=== PATIENT | female | born 1995 | race Caucasian/White ===

== ENCOUNTER 2017-05-07 13:16 | Emergency (ER) | payer BC ==
[2017-05-07 13:26] VITALS: BP 146/104; TEMP 98; O2SAT 99
--- NOTE | 2017-05-07 14:13 | RAD ---
EXAM DESCRIPTION: Forearm, left CLINICAL HISTORY: 21 years Female forearm caught in ski rope COMPARISON: None. TECHNIQUE: Two views of the left forearm. FINDINGS: No acute fractures or dislocations are identified. No osseous destructive lesions. IMPRESSION: No acute fracture is identified. Electronically signed by: Aroldo Gonzalez MD 05/07/2017 2:13 PM CDT
[2017-05-07] MEDS ORDERED: HYDROcodone 5MG/APAP 325MG 1 EA TAB PO ONE (14:26)
--- NOTE | 2017-05-07 14:28 | ED.PDOC ---
History of Present Illness - General Chief Complaint: Upper Extremity Injury Stated Complaint: L wrist injury Time Seen by Provider: 05/07/17 13:21 Source: patient Exam Limitations: no limitations - History of Present Illness Initial Comments: The patient is a 21-year-old female presenting to the emergency room approximatelyone hour after sustaining a left upper extremity injury while water skiing. the patient apparently got a ski rope wrapped around her left forearm for a period of about 20 seconds. This did give some significant swelling. It appears the main area of constriction occurred at the distal third of the forearm. She does appear to be neurovascularly preserved. Capillary refill is within normal limits. Radial pulse is symmetrical. She does have bruising on the volar aspect of her wrist. Aside from swelling there is no obvious bony deformity. Sensation is preserved. No other injuries. No near drowning. Timing/Duration: momentarily Severity: severe Improving Factors: immobilization Worsening Factors: movement Associated Symptoms: denies symptoms Allergies/Adverse Reactions: Allergies NO KNOWN ALLERGY Allergy (Verified 05/07/17 13:24) Home Medications: Ambulatory Orders Wefvtcownvlmr-Qpgv-Lcfqgfosyl [Fioricet] 1 ea PO Q8H PRN #21 tab 05/07/17 Escitalopram [Lexapro] 10 mg PO DAILY 05/07/17 Review of Systems - Review of Systems Constitutional: States: no symptoms reported EENTM: States: no symptoms reported Respiratory: States: no symptoms reported Cardiology: States: no symptoms reported Gastrointestinal/Abdominal: States: no symptoms reported Genitourinary: States: no symptoms reported Musculoskeletal: States: see HPI Skin: States: see HPI Neurological: States: no symptoms reported Endocrine: States: no symptoms reported All other Systems: No Change from Baseline Past Medical History (General) - Patient Medical History Hx Stroke: No Hx Congestive Heart Failure: No Hx Diabetes: No - Vaccination History Hx Influenza Vaccination: No Hx Pneumococcal Vaccination: No - Social History Hx Tobacco Use: No - Female History Patient is a Female of Child Bearing Age (10 -59 yrs old): Yes Patient : No Family Medical History - Family History Mother Family History: No Known Living Status: Still Living Physical Exam - Physical Exam General Appearance: Alert, No apparent distress Eye Exam: bilateral normal Ears, Nose, Throat: hearing grossly normal Neck: full range of motion Respiratory: no respiratory distress, no accessory muscle use Cardiovascular/Chest: normal peripheral pulses, other - regular rate Peripheral Pulses: radial,right: 2+, radial,left: 2+ Rectal Exam: deferred Extremity: normal range of motion, no pedal edema, no calf tenderness, normal capillary refill, other - swelling to the left distal forearm with associated bruising and petechia formation. Neurologic: career development consultant II-XII nml as tested, no motor/sensory deficits, alert, normal mood/affect, oriented x 3 Skin Exam: normal color - with the exception as stated above Comments: Vital Signs - 8 hr 05/07/17 13:24 Temperature 98.0 F Pulse Rate [ 91 H Right Radial] Respiratory 20 Rate Blood Pressure 146/104 [Right Arm] O2 Sat by Pulse 99 Oximetry Progress - Progress Progress: 05/07/17 14:32 the patient is a 21-year-old female presenting after a constriction injury to her left forearm distal third, brief in nature. X-ray shows no evidence of fracture or dislocation. She appears to be neurovascularly intact at this time with no clinical evidence of compartment syndrome. She does need to keep the arm slightly elevated. I would recommend against wrapping the arm for the next 2 days. She does need to move the fingers and move the hand to help reduce discomfort and swelling. Oral anti-inflammatory such as Aleve and ibuprofen may prove helpful for discomfort. She'll be written for Fioricet for as needed use as well. ER warnings were given for any worsening. She does understand that the bruising will extend distally and proximally over the next few days. She should follow-up with her primary care doctor in the next couple of days as well for reevaluation. Departure - Departure Clinical Impression: External constriction of left forearm Qualifiers: Encounter type: initial encounter Qualified Code(s): S50.842A - External constriction of left forearm, initial encounter Disposition: Discharge to Home or Self Care Condition: Fair Departure Forms: ED Discharge - Pt. Copy, Patient Portal Self Enrollment Instructions: DI for Arm Pain Diet: regular diet Activity: increase activity as tolerated Prescriptions: Lvosiaqzlyrhn-Gzly-Btozazasyn [Fioricet] 1 ea PO Q8H PRN #21 tab PRN Reason: Pain Home Medications: Ambulatory Orders Yxzvgqsxbexbt-Aymq-Bnkgnndtpo [Fioricet] 1 ea PO Q8H PRN #21 tab 05/07/17 Escitalopram [Lexapro] 10 mg PO DAILY 05/07/17 Additional Instructions: the patient is a 21-year-old female presenting after a constriction injury to her left forearm distal third, brief in nature. X-ray shows no evidence of fracture or dislocation. She appears to be neurovascularly intact at this time with no clinical evidence of compartment syndrome. She does need to keep the arm slightly elevated. I would recommend against wrapping the arm for the next 2 days. She does need to move the fingers and move the hand to help reduce discomfort and swelling. Oral anti-inflammatory such as Aleve and ibuprofen may prove helpful for discomfort. She'll be written for Fioricet for as needed use as well. ER warnings were given for any worsening. She does understand that the bruising will extend distally and proximally over the next few days. She should follow-up with her primary care doctor in the next couple of days as well for reevaluation.
[2017-05-07] MEDS ORDERED: NEOMYCIN-BACITRACIN-POLYMYXIN 0.9 GM UD TOP ONE (14:37)
== END 2017-05-07 14:46 | disposition home or self-care (01) ==
LOC: ER 13:16
DX: S50.8 Other superficial injuries of forearm (principal); W49.09XA Other specified item causing external constriction, initial encounter; Y93.17 Activity, water skiing and wake boarding; Y92.9 Unspecified place or not applicable